=== PATIENT | female | born 1950 | race Caucasian/White ===

== ENCOUNTER → 2017-04-29 | Outpatient (CLI) | payer OTHER, BC ==
[~2017-04-29] MED LIST: CENTRUM SILVER1 EAC2 PO; CHOLEST MED PO; EFFEXOR 5050 MG/1 T1 PO
== END ==
LOC: RAD 03:37
DX: Z12.31 Encounter for screening mammogram for malignant neoplasm of breast (principal)

== ENCOUNTER → 2017-12-19 | Outpatient (CLI) | payer OTHER, BC | LOC: HYPER 06:51 | DX: S81.801A Unspecified open wound, right lower leg, initial encounter (principal); E78.00 Pure hypercholesterolemia, unspecified; F17.200 Nicotine dependence, unspecified, uncomplicated; X58.XXXA Exposure to other specified factors, initial encounter; Y93.89 Activity, other specified; Y92.89 Other specified places as the place of occurrence of the external cause; Y99.8 Other external cause status ==

== ENCOUNTER → 2018-05-01 | Outpatient (CLI) | payer OTHER, BC | LOC: RAD 01:36 | DX: Z12.31 Encounter for screening mammogram for malignant neoplasm of breast (principal) ==

== ENCOUNTER → 2019-03-28 | Outpatient (CLI) | payer OTHER, BC ==
[2019-03-28 10:21] LABS: CREATININE 0.6 mg/dL (0.6-1.0)
== END ==
LOC: LABMALL 09:42 → MRI 09:42
PROVIDERS: Psychiatry & Neurology Neuromuscular Medicine
DX: I67.82 Cerebral ischemia (principal); J34.89 Other specified disorders of nose and nasal sinuses; R27.0 Ataxia, unspecified; F17.200 Nicotine dependence, unspecified, uncomplicated; Z78.9 Other specified health status

== ENCOUNTER 2019-04-25 14:10 | Emergency (ER) | payer OTHER, BC ==
[~2019-04-25] VITALS: Ht 167.6 cm; Wt 56.2 kg
[2019-04-25] MEDS ORDERED: NORCO 5-325 TA1 EAC1 PO (16:31)
[2019-04-25 16:42] VITALS: BP 150/67
== END 2019-04-25 16:45 | disposition home or self-care (01) ==
LOC: ER 14:10
DX: S82.832A Other fracture of upper and lower end of left fibula, initial encounter for closed fracture (principal); F17.210 Nicotine dependence, cigarettes, uncomplicated; W10.9XXA Fall (on) (from) unspecified stairs and steps, initial encounter; Y93.01 Activity, walking, marching and hiking; Y92.89 Other specified places as the place of occurrence of the external cause; Y99.8 Other external cause status

== ENCOUNTER → 2019-05-02 | Outpatient (CLI) | payer OTHER, BC ==
[~2019-05-02] MED LIST changes: +NORCO 5-325 TA1 EAC1 PO
== END ==
LOC: RAD 10:46
DX: Z12.31 Encounter for screening mammogram for malignant neoplasm of breast (principal)

== ENCOUNTER → 2020-05-06 | Outpatient (CLI) | payer OTHER, BC | LOC: BC 10:01 | DX: Z12.31 Encounter for screening mammogram for malignant neoplasm of breast (principal) ==

== ENCOUNTER → 2021-05-07 | Outpatient (CLI) | payer OTHER, BC | LOC: BC 11:02 | DX: Z12.31 Encounter for screening mammogram for malignant neoplasm of breast (principal) ==